=== PATIENT | female | born 2000 | race African-American/Black ===

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

== ENCOUNTER 2021-10-27 15:15 | Observation (INO) | payer OTHER ==
[2021-10-27] MEDS ORDERED: IV RINGERS,LACTATED 1000ML 1,000 ML IV SCH (16:00)
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
[2021-10-27 16:45] LABS: BILIRUBIN,URINE NEGATIVE (NEG); CLARITY,URINE CLEAR; COLOR,URINE YELLOW; NITRITE,URINE NEGATIVE (NEG); PH,URINE 6.5 (<5.0-8.0); PROTEIN,URINE NEGATIVE (NEG-TRACE)
[2021-10-27 16:57] LABS: BACTERIA,URINE MODERATE /HPF (0-FEW); YEAST,URINE PRESENT /HPF
== END 2021-10-27 18:20 | disposition home or self-care (01) ==
LOC: 3 SO LND 15:15
PROVIDERS: ADMIT Obstetrics & Gynecology; ATTEND Obstetrics & Gynecology
DX: O26.893 Other specified pregnancy related conditions, third trimester (principal); R10.9 Unspecified abdominal pain; Z3A.34 34 weeks gestation of pregnancy; Y04.0XXA Assault by unarmed brawl or fight, initial encounter; Y93.89 Activity, other specified; Y92.89 Other specified places as the place of occurrence of the external cause; Y99.8 Other external cause status
CPT/HCPCS: 59025; 81001; 87086; G0378; G0379